=== PATIENT | female | born 1990 | race Caucasian/White ===

== ENCOUNTER 2018-05-17 18:45 | Emergency (ER) | payer BC ==
[~2018-05-17] VITALS: Ht 152.4 cm; Wt 74.8 kg
--- NOTE | ~2018-05-17 | EKG ---
[address] [place] [address] ELECTROCARDIOGRAM REPORT Name: CHAR HUSSEIN Room #: DEP Lilia#: [id number] Admission: 05/17/18 Attend Phys: Discharge: 05/18/18 Date of : [birth year] Report #: [id number] THIS REPORT FOR: //name// ED Test Date: 2018-05-17 Test Time: 20:45:02 Pat Name: CHAR HUSSEIN Department: Room: Gender: F Support Director: JERSON : 1990 Requested By: Teodoro Obrien Order Number: [id number] MD: Albin Wallace Measurements Intervals [place] Rate: 78 P: 59 [place]: 124 QRS: 35 QRSD: 89 T: 25 QT: 382 QTc: 436 Interpretive Statements Sinus rhythm Normal tracing No previous ECG available for comparison Electronically Signed On 05-18-2018 7:52:29 SALES AND MERCHANDISING ASSOCIATE by Albin Wallace [email or web address] <ELECTRONICALLY SIGNED> By: Albin Wallace MD, [facility] 05/18/18 0752 2045 2045 Albin Wallace MD, FAC /EPI
[2018-05-17] MEDS ORDERED: NADOLOL 20 MG T20 M1 PO (19:15)
[2018-05-17] MEDS ORDERED: ATIVAN0.5 M1 PO (19:17)
[2018-05-17 19:49] LABS: URINE BILIRUBIN NEGATIVE (Negative); URINE BLOOD NEGATIVE (Negative); URINE CLARITY CLEAR; URINE COLOR YELLOW; URINE GLUCOSE-RANDOM* NEGATIVE (Negative); URINE KETONES NEGATIVE (Negative); URINE LEUKOCYTES-REFLEX NEGATIVE (Negative); URINE NITRITE-REFLEX NEGATIVE (Negative); URINE PROTEIN (DIPSTICK) NEGATIVE (Negative); URINE UROBILINOGEN 0.2 E.U./dl (0.2-1.0)
[2018-05-17 19:57] LABS: AMP/METHAMP Negative (Negative); BARBITURATES Negative (Negative); BENZODIAZEPINES Negative (Negative); COCAINE Negative (Negative); METHADONE Negative (Negative); OPIATES Negative (Negative); PCP Negative (Negative)
[2018-05-17 20:37] LABS: ABSOLUTE NEUTROPHILS 3.7 thou/uL (1.4-8.2); BASOPHILS 0.5 % (0.0-2.0); HEMATOCRIT 40.9 % (37.0-47.0); HEMOGLOBIN 14.1 gm/dL (12.0-15.0); LYMPHOCYTES 40.4 % (24.0-44.0); MCHC 34.5 g/dL (28.0-37.0); MCV 86.9 fL (80.0-100.0); MONOCYTES 5.6 % (1.0-8.0); PLATELET COUNT 341 thou/uL (150-400); POLYS 52.5 % (36.0-66.0); RBC 4.71 mil/uL (4.20-5.00); WBC 7.1 thou/uL (4.0-11.0)
[2018-05-17 20:45] LABS: CALCIUM 11.3 mg/dL (8.5-10.1); CREATININE 0.7 mg/dL (0.6-1.0)
[2018-05-17 20:51] LABS: ALBUMIN 4.4 g/dL (3.4-5.0); DIRECT BILIRUBIN 0.2 mg/dL (<0.1-0.3); TOTAL BILIRUBIN 1.2 mg/dL (<0.1-1.0); TOTAL PROTEIN 8.5 g/dL (6.4-8.2)
[2018-05-17] MEDS ORDERED: PHENERGAN 25 MG25 M1 PO (23:35)
[2018-05-18 00:24] VITALS: BP 95/51
== END 2018-05-18 00:26 | disposition home or self-care (01) ==
LOC: ER 18:45
PROVIDERS: Emergency Medicine
DX: R42 Dizziness and giddiness (principal); R51 Headache; R19.7 Diarrhea, unspecified; R11.0 Nausea; H53.149 Visual discomfort, unspecified; Z90.49 Acquired absence of other specified parts of digestive tract

== ENCOUNTER 2018-06-29 16:09 | Emergency (ER) | payer OTHER ==
[~2018-06-29] VITALS: Ht 160 cm; Wt 65.8 kg
[~2018-06-29 16:09] MED LIST: ATIVAN0.5 M1 PO; NADOLOL 20 MG T20 M1 PO; PHENERGAN 25 MG25 M1 PO
[2018-06-29 17:29] LABS: BASOPHILS 0.2 % (0.0-2.0); EOSINOPHILS 0.4 % (0.0-3.0); HEMATOCRIT 43.2 % (37.0-47.0); LYMPHOCYTES 26.6 % (24.0-44.0); MCH 30.6 pg (26.0-34.0); MCHC 34.8 g/dL (28.0-37.0); MCV 88.1 fL (80.0-100.0); MONOCYTES 4.2 % (1.0-8.0); PLATELET COUNT 359 thou/uL (150-400); POLYS 68.6 % (36.0-66.0); RBC 4.91 mil/uL (4.20-5.00); RDW 12.6 % (10.5-14.5); WBC 8.7 thou/uL (4.0-11.0)
[2018-06-29 17:31] LABS: ANION GAP 11 mmol/L (7-16); BUN 10 mg/dL (7-18); CALCIUM 10.2 mg/dL (8.5-10.1); CHLORIDE 101 mmol/L (98-107); CO2 26 mmol/L (21-32); CREATININE 0.8 mg/dL (0.6-1.0); GLUCOSE 104 mg/dL (74-106); POTASSIUM 3.8 mmol/L (3.5-5.1); SODIUM 138 mmol/L (136-145)
[2018-06-29 17:40] LABS: TROPONIN-I <0.06 ng/mL (<0.06)
[2018-06-29 18:23] VITALS: BP 121/76
--- NOTE | 2018-06-30 10:47 | EKG ---
[place] [address] [facility] [place] [address] ELECTROCARDIOGRAM REPORT Name: CHAR HUSSEIN Room #: DEP AMINTA Rodrigues#: [id number] Admission: 06/29/18 Attend Phys: Discharge: 06/29/18 Date of : [birth year] Report #: [id number] THIS REPORT FOR: //name// [facility] ED Test Date: 2018-06-29 Test Time: 17:06:24 Pat Name: CHAR HUSSEIN Department: Room: Gender: F Chief Creative Officer: : 1990 Requested By: Teodoro Obrien Order Number: [id number] MD: Albin Wallace Measurements Intervals [place] Rate: 67 P: 54 [place]: 145 QRS: 36 QRSD: 98 T: 38 QT: 401 QTc: 424 Interpretive Statements Sinus rhythm Normal tracing Compared to ECG 05/17/2018 20:45:02 No significant changes Electronically Signed On 06-30-2018 10:47:09 IC DESIGNER STANDARD CELLS by Albin Wallace [email or web address] <ELECTRONICALLY SIGNED> By: Albin Wallace MD, [facility] 06/30/18 1047 1706 1706 Albin Wallace MD, FACC /EPI
== END 2018-06-29 18:10 | disposition home or self-care (01) ==
LOC: ER 16:09
PROVIDERS: Emergency Medicine
DX: R07.89 Other chest pain (principal); R55 Syncope and collapse; Z88.1 Allergy status to other antibiotic agents; Z90.49 Acquired absence of other specified parts of digestive tract

== ENCOUNTER 2018-10-29 10:17 | Emergency (ER) | payer OTHER ==
[~2018-10-29] VITALS: Ht 152.4 cm; Wt 80.7 kg
[2018-10-29 10:38] LABS: URINE BLOOD NEGATIVE (Negative); URINE CLARITY CLEAR; URINE COLOR YELLOW; URINE GLUCOSE-RANDOM* NEGATIVE (Negative); URINE KETONES 1+ (Negative); URINE LEUKOCYTES-REFLEX NEGATIVE (Negative); URINE NITRITE-REFLEX NEGATIVE (Negative); URINE PROTEIN (DIPSTICK) NEGATIVE (Negative); URINE SPECIFIC GRAVITY >= 1.030 (1.005-1.035); URINE UROBILINOGEN 0.2 E.U./dl (0.2-1.0)
[2018-10-29 10:39] LABS: ICTOTEST (BILI CONFIRMATORY) Negative (Negative); URINE BILIRUBIN NEGATIVE (Negative)
[2018-10-29 11:28] LABS: BASOPHILS 0.3 % (0.0-2.0); HEMATOCRIT 39.4 % (37.0-47.0); HEMOGLOBIN 13.6 gm/dL (12.0-15.0); LYMPHOCYTES 21.5 % (24.0-44.0); MCH 30.5 pg (26.0-34.0); MCHC 34.5 g/dL (28.0-37.0); MCV 88.6 fL (80.0-100.0); MONOCYTES 5.4 % (1.0-8.0); PLATELET COUNT 279 thou/uL (150-400); POLYS 71.8 % (36.0-66.0); RBC 4.44 mil/uL (4.20-5.00); RDW 12.5 % (10.5-14.5); WBC 5.6 thou/uL (4.0-11.0)
[2018-10-29 11:35] LABS: CALCIUM 9.4 mg/dL (8.5-10.1); CREATININE 0.7 mg/dL (0.6-1.0)
[2018-10-29 11:41] LABS: ALBUMIN 4.1 g/dL (3.4-5.0); TOTAL PROTEIN 7.6 g/dL (6.4-8.2)
[2018-10-29] MEDS ORDERED: GABAPENTIN 100100 MG PO (12:01)
[2018-10-29 12:03] VITALS: BP 116/80
== END 2018-10-29 12:33 | disposition home or self-care (01) ==
LOC: ER 10:17
PROVIDERS: Physician Assistant
DX: M79.10 Myalgia, unspecified site (principal); R20.2 Paresthesia of skin; R51 Headache; R10.13 Epigastric pain; R19.7 Diarrhea, unspecified

== ENCOUNTER 2018-11-15 07:58 | Emergency (ER) | payer OTHER ==
[~2018-11-15] VITALS: Ht 152.4 cm; Wt 79.4 kg
[2018-11-15 08:59] LABS: URINE BILIRUBIN NEGATIVE (Negative); URINE BLOOD NEGATIVE (Negative); URINE CLARITY CLEAR; URINE COLOR YELLOW; URINE GLUCOSE-RANDOM* NEGATIVE (Negative); URINE KETONES NEGATIVE (Negative); URINE LEUKOCYTES-REFLEX NEGATIVE (Negative); URINE NITRITE-REFLEX NEGATIVE (Negative); URINE PROTEIN (DIPSTICK) NEGATIVE (Negative); URINE UROBILINOGEN 0.2 E.U./dl (0.2-1.0)
[2018-11-15 09:50] VITALS: BP 120/83
--- NOTE | 2018-11-17 11:01 | EKG ---
[place] [address] [facility] [place] [address] ELECTROCARDIOGRAM REPORT Name: CHAR HUSSEIN Room #: DEP Lilia#: [id number] ������������������ Admission: 11/15/18 ������������������ Attend Phys: Discharge: 11/15/18 ������������������ Date of : [birth year] Report #: [id number] ����������������������������������������������������������������� [id number] THIS REPORT FOR: //name// [facility] ED Test Date: 2018-11-16 Test Time: 21:44:16 Pat Name: CHAR HUSSEIN Department: Room: Gender: F Flight Kitchen Manager: : 1990 Requested By: Teodoro Obrien Order Number: [id number] MD: Albin Wallace Measurements Intervals [place] Rate: 64 P: 68 [place]: 139 QRS: 44 QRSD: 88 T: 45 QT: 385 QTc: 398 Interpretive Statements Sinus rhythm Normal tracing Compared to ECG 06/29/2018 17:06:24 No significant changes Electronically Signed On 11-17-2018 11:01:35 CDT by Albin Wallace [email or web address] ��������������������������������������������� <ELECTRONICALLY SIGNED> ���������������������������������������� By: Albin Wallace MD, [facility] ��������������������������������������������� 11/17/18 1101 2144 2144 Albin Wallace MD, FACC /EPI
== END 2018-11-15 09:52 | disposition home or self-care (01) ==
LOC: ER 07:58
PROVIDERS: Emergency Medicine
DX: F41.9 Anxiety disorder, unspecified (principal); R20.2 Paresthesia of skin; Z88.1 Allergy status to other antibiotic agents; Z90.49 Acquired absence of other specified parts of digestive tract

== ENCOUNTER 2018-11-16 20:58 | Emergency (ER) | payer OTHER ==
[~2018-11-16] VITALS: Ht 160 cm; Wt 59.0 kg
[2018-11-16 23:24] LABS: ABSOLUTE NEUTROPHILS 5.4 thou/uL (1.4-8.2); BASOPHILS 0.2 % (0.0-2.0); EOSINOPHILS 0.3 % (0.0-3.0); HEMATOCRIT 39.1 % (37.0-47.0); HEMOGLOBIN 13.4 gm/dL (12.0-15.0); MCH 29.9 pg (26.0-34.0); MCHC 34.1 g/dL (28.0-37.0); MCV 87.5 fL (80.0-100.0); MONOCYTES 6.1 % (1.0-8.0); PLATELET COUNT 366 thou/uL (150-400); POLYS 52.4 % (36.0-66.0); RBC 4.47 mil/uL (4.20-5.00); RDW 12.4 % (10.5-14.5); WBC 10.2 thou/uL (4.0-11.0)
[2018-11-16 23:28] LABS: CREATININE 0.8 mg/dL (0.6-1.0); POTASSIUM 3.4 mmol/L (3.5-5.1)
[2018-11-17 01:41] VITALS: BP 111/68
--- NOTE | 2018-11-17 11:00 | EKG ---
[place] [address] [facility] [place] [address] ELECTROCARDIOGRAM REPORT Name: CHAR HUSSEIN Room #: DEP Lilia#: [id number] ������������������ Admission: 11/16/18 ������������������ Attend Phys: Discharge: 11/17/18 ������������������ Date of : [birth year] Report #: [id number] ����������������������������������������������������������������� [id number] THIS REPORT FOR: //name// [facility] ED Test Date: 2018-11-16 Test Time: 21:08:46 Pat Name: CHAR HUSSEIN Department: Room: Gender: F Law Office Manager: : 1990 Requested By: Aidee Estes Order Number: [id number] MD: Albin Wallace Measurements Intervals [place] Rate: 72 P: 57 [place]: 150 QRS: 41 QRSD: 88 T: 31 QT: 378 QTc: 414 Interpretive Statements Sinus rhythm Normal tracing Compared to ECG 06/29/2018 17:06:24 No significant changes Electronically Signed On 11-17-2018 11:00:08 CDT by Albin Wallace [email or web address] ��������������������������������������������� <ELECTRONICALLY SIGNED> ���������������������������������������� By: Albin Wallace MD, [facility] ��������������������������������������������� 11/17/18 1100 2108 2108 Albin Wallace MD, FAC /EPI
== END 2018-11-17 01:41 | disposition home or self-care (01) ==
LOC: ER 20:58
PROVIDERS: Emergency Medicine
DX: R00.2 Palpitations (principal); R07.89 Other chest pain; R00.0 Tachycardia, unspecified; R51 Headache; Z90.49 Acquired absence of other specified parts of digestive tract; Z88.1 Allergy status to other antibiotic agents

== ENCOUNTER 2019-01-27 15:30 | Emergency (ER) | payer OTHER ==
[~2019-01-27] VITALS: Ht 152.4 cm; Wt 79.4 kg
[~2019-01-27 15:30] MED LIST changes: +GABAPENTIN 100100 MG PO; +MELATONIN5 M1 PO
[2019-01-27] MEDS ORDERED: CYMBALTA30 MG PO (15:37)
[2019-01-27] MEDS ORDERED: NAPROSYN500 MG PO (16:35)
[2019-01-27] MEDS ORDERED: PRILOSEC OTC20 MG PO (16:35)
[2019-01-27 16:41] VITALS: BP 123/78
--- NOTE | 2019-01-29 17:09 | EKG ---
[place] [address] [employer] [place] [address] ELECTROCARDIOGRAM REPORT Name: CHAR HUSSEIN Room #: DEP Lilia#: [id number] Admission: 01/27/19 Attend Phys: Discharge: 01/27/19 Date of : [birth year] Report #: [id number] THIS REPORT FOR: //name// [facility] ED Test Date: 2019-01-27 Test Time: 15:34:41 Pat Name: CHAR HUSSEIN Department: Room: Gender: F Phlebotomy Manager: : 1990 Requested By: Alessio Hidalgo Order Number: [id number] MD: Albin Wallace Measurements Intervals [place] Rate: 73 P: 48 [place]: 145 QRS: 43 QRSD: 112 T: 39 QT: 379 QTc: 418 Interpretive Statements Sinus rhythm No significant abnormality Compared to ECG 11/16/2018 21:44:16 No significant changes Electronically Signed On 01-29-2019 17:09:45 CDT by Albin Wallace [email or web address] <ELECTRONICALLY SIGNED> By: Albin Wallace MD, [facility] 01/29/19 1709 1534 1534 Albin Wallace MD, FACC /EPI
== END 2019-01-27 17:12 | disposition home or self-care (01) ==
LOC: ER 15:30
DX: R07.89 Other chest pain (principal); F41.9 Anxiety disorder, unspecified; K21.9 Gastro-esophageal reflux disease without esophagitis; Z90.49 Acquired absence of other specified parts of digestive tract; Z79.899 Other long term (current) drug therapy; Z88.1 Allergy status to other antibiotic agents

== ENCOUNTER 2019-05-06 03:30 | Emergency (ER) | payer OTHER ==
[~2019-05-06] VITALS: Ht 152.4 cm; Wt 79.4 kg
[~2019-05-06 03:30] MED LIST changes: +CYMBALTA30 MG PO; +NAPROSYN500 MG PO; +PRILOSEC OTC20 MG PO
[2019-05-06] MEDS ORDERED: MOBIC15 MG PO (04:26)
[2019-05-06 04:56] VITALS: BP 109/73
--- NOTE | 2019-05-06 08:08 | EKG ---
[place] [address] [facility] [place] [address] ELECTROCARDIOGRAM REPORT Name: CHAR HUSSEIN Room #: DEP Lilia#: [id number] Admission: 05/06/19 Attend Phys: Discharge: 05/06/19 Date of : [birth year] Report #: [id number] THIS REPORT FOR: //name// [facility] ED Test Date: 2019-05-06 Test Time: 03:35:55 Pat Name: CHAR HUSSEIN Department: Room: Gender: F Pump Servicer: MAUREEN : 1990 Requested By: Aidee Estes Order Number: [id number] MD: Albin Wallace Measurements Intervals [place] Rate: 73 P: 42 ID: 148 QRS: 41 QRSD: 85 T: 43 QT: 362 QTc: 399 Interpretive Statements Sinus rhythm Normal tracing Compared to ECG 01/27/2019 15:34:41 No significant changes Electronically Signed On 05-06-2019 8:08:34 AUTOMOTIVE MANAGER by Albin Wallace [email or web address] <ELECTRONICALLY SIGNED> By: Albin Wallace MD, [facility] 05/06/19 0808 0335 0335 Albin Wallace MD, FACC /EPI
== END 2019-05-06 04:58 | disposition home or self-care (01) ==
LOC: ER 03:30
DX: M54.10 Radiculopathy, site unspecified (principal); M79.602 Pain in left arm; Z90.49 Acquired absence of other specified parts of digestive tract; Z88.1 Allergy status to other antibiotic agents

== ENCOUNTER 2019-05-23 14:49 | Emergency (ER) | payer OTHER ==
[~2019-05-23] VITALS: Ht 152.4 cm; Wt 79.4 kg
[~2019-05-23 14:49] MED LIST changes: +MOBIC15 MG PO
[2019-05-23 15:05] LABS: URINE BILIRUBIN NEGATIVE (Negative); URINE BLOOD TRACE (Negative); URINE CLARITY CLEAR; URINE COLOR YELLOW; URINE GLUCOSE-RANDOM* NEGATIVE (Negative); URINE KETONES NEGATIVE (Negative); URINE LEUKOCYTES-REFLEX NEGATIVE (Negative); URINE NITRITE-REFLEX NEGATIVE (Negative); URINE PROTEIN (DIPSTICK) NEGATIVE (Negative); URINE UROBILINOGEN 0.2 E.U./dl (0.2-1.0)
[2019-05-23 16:29] LABS: ABSOLUTE NEUTROPHILS 6.8 thou/uL (1.4-8.2); BASOPHILS 0.6 % (0.0-2.0); EOSINOPHILS 0.7 % (0.0-3.0); HEMATOCRIT 39.7 % (37.0-47.0); HEMOGLOBIN 13.4 gm/dL (12.0-15.0); LYMPHOCYTES 24.5 % (24.0-44.0); MCH 30.1 pg (26.0-34.0); MCHC 33.6 g/dL (28.0-37.0); MCV 89.4 fL (80.0-100.0); MONOCYTES 4.4 % (1.0-8.0); PLATELET COUNT 406 thou/uL (150-400); POLYS 69.8 % (36.0-66.0); RBC 4.44 mil/uL (4.20-5.00); RDW 12.7 % (10.5-14.5); WBC 9.7 thou/uL (4.0-11.0)
[2019-05-23 16:33] LABS: CALCIUM 9.9 mg/dL (8.5-10.1); CREATININE 0.7 mg/dL (0.6-1.0)
[2019-05-23 16:39] LABS: ALBUMIN 4.5 g/dL (3.4-5.0); TOTAL BILIRUBIN 0.8 mg/dL (<0.1-1.0); TOTAL PROTEIN 8.4 g/dL (6.4-8.2)
[2019-05-23 17:22] VITALS: BP 138/88
[2019-05-23] MEDS ORDERED: PROTONIX40 MG PO (18:04)
[2019-05-23] MEDS ORDERED: TYLENOL325 MG PO (18:04)
[2019-05-23] MEDS ORDERED: ULTRAM 50MG TAB50 MG PO ×3 (18:04→18:17)
[2019-05-23] MEDS ORDERED: ZOFRAN ODT4 MG PO (18:04)
== END 2019-05-23 18:46 | disposition home or self-care (01) ==
LOC: ER 14:49
PROVIDERS: Emergency Medicine; Physician Assistant
DX: R10.11 Right upper quadrant pain (principal); R19.7 Diarrhea, unspecified; Z88.1 Allergy status to other antibiotic agents; Z79.899 Other long term (current) drug therapy; Z90.49 Acquired absence of other specified parts of digestive tract

== ENCOUNTER 2019-05-25 17:21 | Emergency (ER) | payer OTHER ==
[~2019-05-25] VITALS: Ht 152.4 cm; Wt 79.4 kg
[~2019-05-25 17:21] MED LIST changes: +PROTONIX40 MG PO; +TYLENOL325 MG PO; +ULTRAM 50MG TAB50 MG PO; +ZOFRAN ODT4 MG PO
[2019-05-25 18:03] LABS: ABSOLUTE NEUTROPHILS 3.9 thou/uL (1.4-8.2); BASOPHILS 0.4 % (0.0-2.0); HEMATOCRIT 41.2 % (37.0-47.0); HEMOGLOBIN 14.1 gm/dL (12.0-15.0); LYMPHOCYTES 39.7 % (24.0-44.0); MCH 29.9 pg (26.0-34.0); MCHC 34.2 g/dL (28.0-37.0); MCV 87.6 fL (80.0-100.0); MONOCYTES 4.7 % (1.0-8.0); PLATELET COUNT 366 thou/uL (150-400); POLYS 54.2 % (36.0-66.0); RBC 4.71 mil/uL (4.20-5.00); RDW 12.7 % (10.5-14.5); WBC 7.2 thou/uL (4.0-11.0)
[2019-05-25 18:11] LABS: URINE BILIRUBIN NEGATIVE (Negative); URINE BLOOD NEGATIVE (Negative); URINE CLARITY CLEAR; URINE COLOR YELLOW; URINE GLUCOSE-RANDOM* NEGATIVE (Negative); URINE KETONES 1+ (Negative); URINE LEUKOCYTES-REFLEX NEGATIVE (Negative); URINE NITRITE-REFLEX NEGATIVE (Negative); URINE PROTEIN (DIPSTICK) NEGATIVE (Negative); URINE SPECIFIC GRAVITY <= 1.005 (1.005-1.035); URINE UROBILINOGEN 0.2 E.U./dl (0.2-1.0)
[2019-05-25 18:12] LABS: CALCIUM 10.9 mg/dL (8.5-10.1); CREATININE 0.8 mg/dL (0.6-1.0); POTASSIUM 3.7 mmol/L (3.5-5.1)
[2019-05-25 18:18] LABS: ALBUMIN 4.7 g/dL (3.4-5.0); TOTAL BILIRUBIN 1.2 mg/dL (<0.1-1.0)
[2019-05-25 20:40] VITALS: BP 142/91
--- NOTE | 2019-05-26 10:30 | EKG ---
[place] [address] [facility] [place] [address] ELECTROCARDIOGRAM REPORT Name: CHAR HUSSEIN Room #: DEP [facility] [id number] Admission: 05/25/19 Attend Phys: Discharge: 05/25/19 Date of : [birth year] Report #: [id number] THIS REPORT FOR: //name// [facility] ED Test Date: 2019-05-25 Test Time: 17:22:54 Pat Name: CHAR HUSSEIN Department: Room: Gender: F Assistant Manager/Embalmer: HARRISON : 1990 Requested By: Alessio Hidalgo Order Number: [id number] MD: Nino Perez Measurements Intervals [place] Rate: 72 P: 75 [place]: 151 QRS: 35 QRSD: 114 T: 34 QT: 390 QTc: 427 Interpretive Statements Sinus rhythm Atrial premature complex Borderline intraventricular conduction delay Baseline wander in lead(s) II,III,aVF,V5 Compared to ECG 05/06/2019 03:35:55 Atrial premature complex(es) now present Electronically Signed On 05-26-2019 10:29:42 CRIMINAL PSYCHOLOGIST by Nino Perez [email or web address] <ELECTRONICALLY SIGNED> By: Nino Perez MD 05/26/19 1029 21 21 Nino Perez MD /EPI
== END 2019-05-25 20:40 | disposition home or self-care (01) ==
LOC: ER 17:21
PROVIDERS: Emergency Medicine
DX: R10.11 Right upper quadrant pain (principal); R10.84 Generalized abdominal pain; R19.7 Diarrhea, unspecified; Z90.49 Acquired absence of other specified parts of digestive tract; Z88.1 Allergy status to other antibiotic agents

== ENCOUNTER 2019-05-26 13:27 | Emergency (ER) | payer OTHER ==
[~2019-05-26] VITALS: Ht 152.4 cm; Wt 79.4 kg
[2019-05-26 14:26] LABS: ABSOLUTE NEUTROPHILS 5.1 thou/uL (1.4-8.2); BASOPHILS 0.2 % (0.0-2.0); EOSINOPHILS 0.5 % (0.0-3.0); HEMATOCRIT 39.1 % (37.0-47.0); HEMOGLOBIN 13.3 gm/dL (12.0-15.0); LYMPHOCYTES 32.5 % (24.0-44.0); MCH 29.9 pg (26.0-34.0); MONOCYTES 5.5 % (1.0-8.0); PLATELET COUNT 396 thou/uL (150-400); POLYS 61.3 % (36.0-66.0); RBC 4.45 mil/uL (4.20-5.00); RDW 12.8 % (10.5-14.5); WBC 8.3 thou/uL (4.0-11.0)
[2019-05-26 14:31] LABS: ANION GAP 16 mmol/L (7-16); BUN 8 mg/dL (7-18); CHLORIDE 100 mmol/L (98-107); CO2 23 mmol/L (21-32); CREATININE 0.8 mg/dL (0.6-1.0); GLUCOSE 94 mg/dL (74-106); POTASSIUM 3.8 mmol/L (3.5-5.1); SODIUM 139 mmol/L (136-145)
[2019-05-26 14:39] LABS: ALBUMIN 4.5 g/dL (3.4-5.0); DIRECT BILIRUBIN 0.2 mg/dL (<0.1-0.2); LIPASE 86 U/L (73-393); SGOT 13 U/L (15-37); SGPT 33 U/L (30-65); TOTAL BILIRUBIN 1.1 mg/dL (<0.1-1.0); TOTAL PROTEIN 8.1 g/dL (6.4-8.2)
[2019-05-26 15:39] LABS: URINE BILIRUBIN NEGATIVE (Negative); URINE BLOOD TRACE (Negative); URINE CLARITY CLEAR; URINE COLOR YELLOW; URINE GLUCOSE-RANDOM* NEGATIVE (Negative); URINE KETONES 3+ (Negative); URINE LEUKOCYTES-REFLEX NEGATIVE (Negative); URINE NITRITE-REFLEX NEGATIVE (Negative); URINE PROTEIN (DIPSTICK) NEGATIVE (Negative); URINE UROBILINOGEN 0.2 E.U./dl (0.2-1.0)
[2019-05-26 16:40] VITALS: BP 114/72
--- NOTE | 2019-05-27 07:52 | EKG ---
[place] [address] [facility] [place] [address] ELECTROCARDIOGRAM REPORT Name: CHAR HUSSEIN Room #: [facility] Lilia#: [id number] Admission: 05/26/19 Attend Phys: Discharge: 05/26/19 Date of : [birth year] Report #: [id number] THIS REPORT FOR: //name// [facility] ED Test Date: 2019-05-26 Test Time: 13:41:26 Pat Name: CHAR HUSSEIN Department: Room: Gender: F Contact Center Engineer: : 1990 Requested By: Aidee Estes Order Number: [id number] MD: Albin Wallace Measurements Intervals [place] Rate: 61 P: 55 [place]: 143 QRS: 41 QRSD: 84 T: 39 QT: 408 QTc: 411 Interpretive Statements Sinus rhythm Normal tracing Compared to ECG 05/25/2019 17:22:54 Atrial premature complex(es) no longer present Electronically Signed On 05-27-2019 7:51:44 SOUND ASSISTANT by Albin Wallace [email or web address] <ELECTRONICALLY SIGNED> By: Albin Wallace MD, [facility] 05/27/19 0751 1341 1341 Albin Wallace MD, FACC /EPI
== END 2019-05-26 16:40 | disposition home or self-care (01) ==
LOC: ER 13:27
PROVIDERS: Emergency Medicine
DX: K21.9 Gastro-esophageal reflux disease without esophagitis (principal); R19.7 Diarrhea, unspecified; Z90.49 Acquired absence of other specified parts of digestive tract; Z88.1 Allergy status to other antibiotic agents

== ENCOUNTER 2020-06-20 21:46 | Emergency (ER) | payer OTHER ==
[~2020-06-20] VITALS: Ht 152.4 cm; Wt 81.7 kg
[2020-06-20 22:41] LABS: ABSOLUTE NEUTROPHILS 5.2 thou/uL (1.4-8.2); BASOPHILS 0.4 % (0.0-2.0); EOSINOPHILS 1.4 % (0.0-3.0); HEMATOCRIT 36.5 % (37.0-47.0); HEMOGLOBIN 12.1 gm/dL (12.0-15.0); LYMPHOCYTES 29.7 % (24.0-44.0); MCH 29.6 pg (26.0-34.0); MCV 89.7 fL (80.0-100.0); MONOCYTES 6.2 % (1.0-8.0); PLATELET COUNT 326 thou/uL (150-400); POLYS 62.3 % (36.0-66.0); RBC 4.07 mil/uL (4.20-5.00); WBC 8.3 thou/uL (4.0-11.0)
[2020-06-20 22:49] LABS: CALCIUM 9.3 mg/dL (8.5-10.1); CREATININE 0.8 mg/dL (0.6-1.0); MAGNESIUM 1.9 mg/dL (1.8-2.4); POTASSIUM 3.6 mmol/L (3.5-5.1)
[2020-06-20 23:39] VITALS: BP 118/58
== END 2020-06-20 23:40 | disposition home or self-care (01) ==
LOC: ER 21:46
PROVIDERS: Emergency Medicine
DX: R60.0 Localized edema (principal); R10.10 Upper abdominal pain, unspecified; Z79.899 Other long term (current) drug therapy; Z88.1 Allergy status to other antibiotic agents

== ENCOUNTER 2020-06-29 23:24 | Emergency (ER) | payer OTHER ==
[~2020-06-29] VITALS: Ht 152.4 cm; Wt 81.7 kg
[2020-06-29] MEDS ORDERED: ATIVAN0.5 M1 PO (23:32)
[2020-06-30 00:27] LABS: BASOPHILS 0.2 % (0.0-2.0); EOSINOPHILS 0.8 % (0.0-3.0); HEMATOCRIT 41.1 % (37.0-47.0); HEMOGLOBIN 13.8 gm/dL (12.0-15.0); LYMPHOCYTES 38.9 % (24.0-44.0); MCHC 33.6 g/dL (28.0-37.0); MCV 89.3 fL (80.0-100.0); PLATELET COUNT 391 thou/uL (150-400); POLYS 54.1 % (36.0-66.0); RDW 12.7 % (10.5-14.5); WBC 9.2 thou/uL (4.0-11.0)
[2020-06-30 00:33] LABS: ANION GAP 13 mmol/L (7-16); BUN 7 mg/dL (7-18); CALCIUM 9.9 mg/dL (8.5-10.1); CHLORIDE 101 mmol/L (98-107); CO2 24 mmol/L (21-32); CREATININE 0.8 mg/dL (0.6-1.0); GLUCOSE 138 mg/dL (74-106); POTASSIUM 3.7 mmol/L (3.5-5.1); SODIUM 138 mmol/L (136-145)
[2020-06-30 00:33] LABS: URINE BILIRUBIN NEGATIVE (Negative); URINE BLOOD NEGATIVE (Negative); URINE CLARITY CLEAR; URINE COLOR YELLOW; URINE GLUCOSE-RANDOM* NEGATIVE (Negative); URINE KETONES TRACE (Negative); URINE LEUKOCYTES-REFLEX NEGATIVE (Negative); URINE NITRITE-REFLEX NEGATIVE (Negative); URINE PROTEIN (DIPSTICK) NEGATIVE (Negative); URINE UROBILINOGEN 0.2 E.U./dl (0.2-1.0)
[2020-06-30 00:43] LABS: ALBUMIN 4.4 g/dL (3.4-5.0); SGOT 15 U/L (15-37); SGPT 29 U/L (30-65); TOTAL BILIRUBIN 1.4 mg/dL (0.2-1.0); TROPONIN-I <0.06 ng/mL (<0.06)
[2020-06-30 02:29] VITALS: BP 142/92
--- NOTE | 2020-06-30 15:23 | EKG ---
[place] [address] [facility] [place] [address] ELECTROCARDIOGRAM REPORT Name: CHAR HUSSEIN Room #: DEP Lilia#: [id number] Admission: 06/29/20 Attend Phys: Discharge: 06/30/20 Date of : [birth year] Report #: [id number] [facility] ED Test Date: 2020-06-29 Test Time: 23:30:35 Pat Name: CHAR HUSSEIN Department: Room: Gender: F Allergy Nurse: amador : 1990 Requested By: Michael Cristina Order Number: [id number] MD: Pablo Dupree Measurements Intervals [place] Rate: 66 P: 49 [place]: 150 QRS: 55 QRSD: 94 T: 48 QT: 390 QTc: 409 Interpretive Statements Sinus rhythm Baseline wander in lead(s) V1 Compared to ECG 05/26/2019 13:41:26 No significant changes Electronically Signed On 06-30-2020 15:23:09 CORRECTIONAL COOK by Pablo Dupree [email or web address] <ELECTRONICALLY SIGNED> By: Pablo Dupree MD, [facility] 06/30/20 1523 2330 2330 Pablo Dupree MD, FACC /EPI
== END 2020-06-30 02:30 | disposition home or self-care (01) ==
LOC: ER 23:24
PROVIDERS: Emergency Medicine
DX: K29.70 Gastritis, unspecified, without bleeding (principal); R07.89 Other chest pain; R11.10 Vomiting, unspecified; K21.9 Gastro-esophageal reflux disease without esophagitis; F41.9 Anxiety disorder, unspecified; Z79.899 Other long term (current) drug therapy; Z88.1 Allergy status to other antibiotic agents

== ENCOUNTER 2020-07-05 19:08 | Emergency (ER) | payer OTHER ==
[~2020-07-05] VITALS: Ht 152.4 cm; Wt 81.7 kg
[2020-07-05 20:03] LABS: URINE BILIRUBIN NEGATIVE (Negative); URINE BLOOD NEGATIVE (Negative); URINE CLARITY CLEAR; URINE COLOR YELLOW; URINE GLUCOSE-RANDOM* NEGATIVE (Negative); URINE KETONES NEGATIVE (Negative); URINE LEUKOCYTES-REFLEX NEGATIVE (Negative); URINE NITRITE-REFLEX NEGATIVE (Negative); URINE PROTEIN (DIPSTICK) NEGATIVE (Negative); URINE UROBILINOGEN 0.2 E.U./dl (0.2-1.0)
[2020-07-05 20:13] VITALS: BP 111/79
[2020-07-05 20:14] LABS: AMP/METHAMP Negative (Negative); BARBITURATES Negative (Negative); BENZODIAZEPINES Negative (Negative); COCAINE Negative (Negative); METHADONE Negative (Negative); OPIATES Negative (Negative); PCP Negative (Negative)
[2020-07-05 20:32] LABS: ABSOLUTE NEUTROPHILS 4.8 thou/uL (1.4-8.2); BASOPHILS 0.2 % (0.0-2.0); EOSINOPHILS 1.2 % (0.0-3.0); HEMATOCRIT 40.2 % (37.0-47.0); HEMOGLOBIN 13.7 gm/dL (12.0-15.0); LYMPHOCYTES 29.5 % (24.0-44.0); MCH 30.2 pg (26.0-34.0); MCHC 34.1 g/dL (28.0-37.0); MCV 88.7 fL (80.0-100.0); MONOCYTES 6.9 % (1.0-8.0); PLATELET COUNT 299 thou/uL (150-400); POLYS 62.2 % (36.0-66.0); RBC 4.53 mil/uL (4.20-5.00); RDW 12.9 % (10.5-14.5); WBC 7.7 thou/uL (4.0-11.0)
[2020-07-05 20:43] LABS: CALCIUM 9.2 mg/dL (8.5-10.1); CREATININE 0.7 mg/dL (0.6-1.0); POTASSIUM 3.7 mmol/L (3.5-5.1)
[2020-07-05 20:54] LABS: ALBUMIN 4.2 g/dL (3.4-5.0); TOTAL BILIRUBIN 0.8 mg/dL (0.2-1.0); TOTAL PROTEIN 7.8 g/dL (6.4-8.2)
== END 2020-07-05 21:48 | disposition home or self-care (01) ==
LOC: ER 19:08
PROVIDERS: Physician Assistant
DX: R53.1 Weakness (principal); F12.90 Cannabis use, unspecified, uncomplicated; K21.9 Gastro-esophageal reflux disease without esophagitis; Z88.1 Allergy status to other antibiotic agents; Z79.899 Other long term (current) drug therapy; Z90.49 Acquired absence of other specified parts of digestive tract

== ENCOUNTER 2020-07-08 11:39 | Emergency (ER) | payer OTHER ==
[~2020-07-08] VITALS: Ht 152.4 cm; Wt 81.7 kg
[2020-07-08 12:50] LABS: ABSOLUTE NEUTROPHILS 7.3 thou/uL (1.4-8.2); BASOPHILS 0.3 % (0.0-2.0); EOSINOPHILS 0.5 % (0.0-3.0); HEMATOCRIT 39.5 % (37.0-47.0); HEMOGLOBIN 13.2 gm/dL (12.0-15.0); LYMPHOCYTES 17.3 % (24.0-44.0); MCH 29.9 pg (26.0-34.0); MCHC 33.4 g/dL (28.0-37.0); MCV 89.4 fL (80.0-100.0); MONOCYTES 3.9 % (1.0-8.0); PLATELET COUNT 272 thou/uL (150-400); RBC 4.41 mil/uL (4.20-5.00); RDW 12.8 % (10.5-14.5); WBC 9.4 thou/uL (4.0-11.0)
[2020-07-08 12:52] LABS: URINE BILIRUBIN NEGATIVE (Negative); URINE BLOOD NEGATIVE (Negative); URINE CLARITY CLEAR; URINE COLOR YELLOW; URINE GLUCOSE-RANDOM* NEGATIVE (Negative); URINE KETONES NEGATIVE (Negative); URINE LEUKOCYTES-REFLEX NEGATIVE (Negative); URINE NITRITE-REFLEX NEGATIVE (Negative); URINE PROTEIN (DIPSTICK) NEGATIVE (Negative); URINE SPECIFIC GRAVITY <= 1.005 (1.005-1.035); URINE UROBILINOGEN 0.2 E.U./dl (0.2-1.0)
[2020-07-08 12:59] LABS: CALCIUM 9.3 mg/dL (8.5-10.1); CREATININE 0.6 mg/dL (0.6-1.0); POTASSIUM 3.9 mmol/L (3.5-5.1)
[2020-07-08 13:04] LABS: ALBUMIN 3.9 g/dL (3.4-5.0); TOTAL BILIRUBIN 0.8 mg/dL (0.2-1.0); TOTAL PROTEIN 7.4 g/dL (6.4-8.2)
[2020-07-08] MEDS ORDERED: MECLIZINE HCL25 M1 PO (13:52)
[2020-07-08 13:57] VITALS: BP 121/80
== END 2020-07-08 13:59 | disposition home or self-care (01) ==
LOC: ER 11:39
PROVIDERS: Emergency Medicine
DX: R42 Dizziness and giddiness (principal); R53.1 Weakness; R51.9 Headache, unspecified; M79.601 Pain in right arm; K21.9 Gastro-esophageal reflux disease without esophagitis; F41.9 Anxiety disorder, unspecified; M79.604 Pain in right leg; M54.9 Dorsalgia, unspecified; Z79.899 Other long term (current) drug therapy; Z88.1 Allergy status to other antibiotic agents